=== PATIENT | male | born 1955 | race Caucasian/White ===

== ENCOUNTER 2018-02-28 17:29 | Observation (INO) ==
[2018-02-28 18:13] LABS: Microscopic, Urine URINE MICROSCOPIC (MICROSCOPIC)
[2018-02-28 18:23] LABS: Basophils # 0.1 K/mm3 (0-0.2); Basophils % 0.5 % (0.1-2.0); Eosinophils # 0.4 K/mm3 (0.0-0.4); Eosinophils % 4.4 % (0.1-12.0); Hematocrit 36.8 % (42.0-52.0); Hemoglobin 11.3 g/dL (14.1-18.0); Lymphocytes # 2.2 K/mm3 (0.7-4.5); Lymphocytes % 24.6 K/mm3 (10-50); Mean Corpuscular HGB Conc 30.6 g/dL (31.8-35.4); Mean Corpuscular Volume 78.3 fl (80-94); Mean Platelet Volume 7.5 fl (7.4-10.4); Monocytes # 0.3 K/mm3 (0.1-1.0); Monocytes % 3.6 % (1.7-9.3); Platelet Count 152 K/mm3 (142-424); Red Cell Distribution Width 14.5 % (11.5-17.5)
[2018-02-28 18:36] LABS: Appearance,Urine CLEAR (Clear); Bilirubin,Urine Negative (Negative); Blood, Urine 2+ (Negative); Color,Urine YELLOW (Yellow); Glucose,Urine (UA) 3+ (Negative); Ketones,Urine Negative (Negative); Leukocyte Esterase,Urine Negative (Negative); PH,Urine 5.5 (5.0-8.5); Protein,Urine 3+ (Negative); Specific Gravity, Urine >= 1.030 (1.005-1.030); Urobilinogen,Urine 0.2 EU/dl (0.2)
[2018-02-28 18:39] LABS: Activated Partial Thrombo Time 28.9 seconds (23.6-34.0); INR 1.02 (0.9-1.1); Prothrombin Time 10.5 seconds (9.4-11.8)
[2018-02-28 18:46] LABS: Anion Gap 8.6 mEq/L (5-15); Blood Urea Nitrogen 36 mg/dL (7-18); Calcium 8.6 mg/dL (8.5-10.1); Carbon Dioxide 33 mmol/L (21.0-32.0); Chloride 102 mmol/L (98-107); Glucose 349 mg/dL (74-106); Potassium 4.6 mmoL/L (3.5-5.1); Sodium 139 mmol/L (136-145)
[2018-02-28 18:56] LABS: Bacteria,Urine 1+ /lpf; Squamous Epithelial Cell,Urine Occasional #/hpf (0-5)
--- NOTE | 2018-02-28 20:55 | Emergency Department Note ---
ED Disposition Clinical Impression: Congestive heart failure (CHF), Acute exacerbation of chronic obstructive airways disease, Pulmonary embolism Disposition: Admitted As Inpatient Condition on Discharge: Serious - Critical Care Critical Care Time: Yes (Patient treated for acute CHF acute chest pain) Attestation: On 02/28/18, the high probability of a clinically significant, sudden or life threatening deterioration of the following system(s) required my full and direct attention, intervention and personal management. The time I documented below is in addition to time spent performing reported procedures but includes the f reginakendradanielle listed in this critical care notation. Total Critical Care Time: 60 Vital system(s) involved:: Metabolic Failure, Respiratory Failure My critical care processes included: Assessment & monitoring of V/S, Initial and Re-exams, Data Review/Interpretation, Coordinating Care, Medication Orders and management, Documentation Medical Decision Making - Antonio Inquiry Pt receiving controlled substance: No Antonio was queried for this patient: No Vital Signs: 02/28/18 17:30 02/28/18 17:45 02/28/18 17:50 Temperature 96.5 F L Temperature Source Temporal Artery Scan Pulse Rate Pulse Rate [Apical] 79 72 68 Respiratory Rate 24 24 22 Blood Pressure Blood Pressure [Left Arm] 180/93 171/88 156/87 Blood Pressure Mean [Left Arm] 122 115 110 Blood Pressure Source Blood Pressure Source [Left Arm] Automatic Cuff Automatic Cuff Automatic Cuff Blood Pressure Position Blood Pressure Position [Left Arm] Sitting Sitting Sitting 02 Sat by Pulse Oximetry 94 L 94 L 94 L Oxygen Delivery Method Non-Rebreather BiPAP BiPAP 02/28/18 17:55 02/28/18 18:00 02/28/18 19:11 Temperature 96.8 F L Temperature Source Temporal Artery Scan Pulse Rate Pulse Rate [Apical] 66 65 63 Respiratory Rate 22 22 22 Blood Pressure Blood Pressure [Left Arm] 152/78 151/90 146/65 Blood Pressure Mean [Left Arm] 102 110 92 Blood Pressure Source Blood Pressure Source [Left Arm] Automatic Cuff Automatic Cuff Automatic Cuff Blood Pressure Position Blood Pressure Position [Left Arm] Sitting Sitting Sitting 02 Sat by Pulse Oximetry 94 L 94 L 95 Oxygen Delivery Method BiPAP BiPAP BiPAP 02/28/18 19:27 02/28/18 19:29 Temperature 96.8 F L Temperature Source Temporal Artery Scan Pulse Rate 64 Pulse Rate [Apical] Respiratory Rate 20 Blood Pressure 155/87 Blood Pressure [Left Arm] Blood Pressure Mean [Left Arm] Blood Pressure Source Automatic Cuff Blood Pressure Source [Left Arm] Blood Pressure Position Sitting Blood Pressure Position [Left Arm] 02 Sat by Pulse Oximetry Oxygen Delivery Method BiPAP Non-Rebreather BiPAP - Lab Data Lab results reviewed: Yes: I reviewed the patient's lab results. Lab Results 02/28/18 17:40: WBC 9.0, RBC 4.70, Hgb 11.3 L, Hct 36.8 L, MCV 78.3 L, MCH 24.0 L, MCHC 30.6 L, RDW 14.5, Plt Count 152, MPV 7.5, Neut % (Auto) 67.0, Lymph % (Auto) 24.6, [place] % (Auto) 3.6, Eos % (Auto) 4.4, Baso % (Auto) 0.5, Neut # (Auto) 6.0, Lymph # (Auto) 2.2, [place] # (Auto) 0.3, Eos # (Auto) 0.4, Baso # (Auto) 0.1 02/28/18 17:40: Sodium 139, Potassium 4.6, Chloride 102, Carbon Dioxide 33 H, Anion Gap 8.6, BUN 36 H, Creatinine 1.87 H, Estimated Creat Clear 77, Estimated GFR 37 L, Est GFR ( Amer) 44 L, Glucose 349 H, Calcium 8.6, Troponin I < 0.02 02/28/18 17:40: Urine Color Yellow, Urine Appearance Clear, Urine pH 5.5, Ur Specific [place] >= 1.030, Urine Protein 3+, Urine Glucose (UA) 3+, Urine Ketones Negative, Urine Blood 2+, Urine Nitrate Negative, Urine Bilirubin Negative, Urine Urobilinogen 0.2, Ur Leukocyte Esterase Negative, Urine RBC None, Urine WBC 3-5, Ur Squamous Epith Cells Occasional, Urine Bacteria 1+ 02/28/18 18:21: PT 10.5, INR 1.02, APTT 28.9 02/28/18 19:30: Lactate 1.0 Result diagrams: 02/28/18 17:40 02/28/18 17:40 Orders (Tests/Meds): ED MEDICATIONS Generic Name Dose Route Start Last Admin Trade Name Freq PRN Reason Stop Dose Admin Albuterol/Ipratropium 3 ml 02/28/18 19:28 Duoneb 3ml Neb IH 03/05/18 19:27 Q3H PRN Shortness Of Breath Aspirin 81 mg 03/01/18 09:00 Aspirin 81mg Chewable Tablet PO 03/31/18 08:59 DAILY EUSEBIO Enoxaparin Sodium 140 mg 02/28/18 19:28 Lovenox 150mg/Ml Syringe SQ 03/30/18 19:27 Q12H EUSEBIO Furosemide 60 mg 02/28/18 23:30 Lasix 20mg/2ml Vial IV 02/28/18 23:31 ONCE ONE Vancomycin HCl 2,250 mg/ 250 mls @ 125 mls/hr 02/28/18 19:28 Sodium Chloride IV 02/28/18 20:45 ONCE ONE Ceftriaxone Sodium 2 gm/ 100 mls @ 200 mls/hr 03/01/18 18:45 Sodium Chloride IV 03/14/18 18:44 Q24H EUSEBIO Protocol Insulin Human Lispro 0 unit 02/28/18 21:00 Humalog 100 Units/Ml 3ml Vial (Ssi) SQ 03/30/18 20:59 ACHS [facility] Protocol Morphine Sulfate 4 mg 02/28/18 19:28 Morphine 2mg/Ml Syringe IV 03/30/18 19:27 Q4H PRN Severe Pain Nitroglycerin 0.4 mg 02/28/18 19:28 Nitrostat 0.4mg Sl Tablet SL 03/01/18 19:29 Q5MINP PRN Chest Pain Discontinued Medications Generic Name Dose Route Start Last Admin Trade Name Freq PRN Reason Stop Dose Admin Enoxaparin Sodium 140 mg 02/28/18 18:06 02/28/18 18:19 Lovenox 150mg/Ml Syringe SQ 02/28/18 18:07 140 mg ONCE ONE Administration Furosemide 60 mg 02/28/18 17:54 02/28/18 17:37 Lasix 20mg/2ml Vial IV 02/28/18 17:55 60 mg ONCE ONE Administration Magnesium Sulfate 1 gm/ Sodium 102 mls @ 200 mls/hr 02/28/18 17:30 02/28/18 18:19 Chloride IV 02/28/18 18:00 200 mls/hr ONCE ONE Administration Magnesium Sulfate 1 gm/ Sodium 102 mls @ 200 mls/hr 02/28/18 17:41 02/28/18 17:30 Chloride IV 02/28/18 18:11 200 mls/hr ONCE ONE Administration Ceftriaxone Sodium 2 gm/ 100 mls @ 200 mls/hr 02/28/18 18:45 02/28/18 18:50 Sodium Chloride IV 03/14/18 18:44 200 mls/hr Q24H EUSEBIO Administration Protocol Vancomycin HCl 2,250 mg/ 250 mls @ 125 mls/hr 02/28/18 18:46 Sodium Chloride IV 02/28/18 20:45 ONCE ONE ORDERS Category Date Time Status Chest XR -- portable [XR chest portable] Stat Exams 02/28/18 17:44 Taken XR chest portable Stat Exams 03/01/18 07:00 Ordered Complete Blood Count Auto Diff AMLAB Lab 03/01/18 06:00 Ordered Comprehensive Metabolic Panel AMLAB Lab 03/01/18 06:00 Ordered Troponin I Q3H Lab 02/28/18 22:28 Ordered Troponin I Q3H Lab 03/01/18 01:28 Ordered - Radiology Data #1 Image(s): Chest Image Reviewed: Yes I reviewed the patient's radiology results Preliminary Findings: Abnormal (CHF) Medical Decision Narrative: Patient came in acute CHF possible DC versus EKG showed no significant abnormalities repeat EKG also did not show significant abnormalities no acute DC . Patient was treated with acute BiPAP IV magnesium Lasix reassurance. He was catheterized by me with #16 catheter with clear clear urine. In 15-20 minutes patient was significantly improved able to respond to verbal stimuli. With short answers patient was discussed with Dr. Aponte and admitted to the stepdown in improving condition because of his size risk factors a pulmonary embolus was considered and patient was prophylactically started on Lovenox he was not a candidate for contrast CT Chest Pain HPI - General Chief Complaint: Shortness of Breath/Dyspnea Stated Complaint: SOA Time Seen by Provider: 02/28/18 17:30 Mode of Arrival: EMS Source of Information: Patient, EMS Limitations: No Limitations Description of Symptoms (Recalled from ER Triage Doc. by RN): Per pt report pt has been feeling SOA for a couple of days. EMS reports they picked pt up from his PCP office r/t SOA and weakness. Upon arrival to ED pt was SOA, lethargic, pale and diaphoretic - History of Present Illness HPI narrative: Patient was brought in by EMS after a possible STEMI was considered in route patient had 2 days of history of increasing shortness of breath called the doctor's office and showed up in severe respiratory distress he is a diabetic obese individual recently admitted and discharged from another hospital for possible kidney infection. He showed up at the doctor's office in extreme distress and dyspnea EMS was called and patient transferred to the emergency room with chest pain history in route he was given nitroglycerin and became hypotensive. On arrival he was in extreme respiratory distress tachypneic with wheezes and rales MD complaint: chest pain Duration: intermittent Pain radiation: none Risk Factors for CAD: Hypertension, Diabetes Treatments prior to or on arrival for Cardiac Chest Pain: aspirin, nitroglycerin, oxygen - Related Data Allergies Allergy/AdvReac Type Severity Reaction Status Date / Time No Known Allergies Allergy Unverified 05/25/17 15:39 [facility] History I have reviewed the patient's past medical history: Yes Medical History: Reports:: Diabetes Mellitus Type 2, Hyperlipidemia, Hypertension, Myocardial Infarction (2005) Other Medical History: Reports: Cataracts Other Surgeries: Yes: Cholecystectomy - Social History Educational Level: Attended Grade School Smoking Status: Former smoker Tobacco Type: cigarettes Alcohol Intake: never Occupational Status: disabled Household Members: none - Psychiatric History Expresses thoughts of harming self/others: None Suicide Plan Description: No Plan Family Hx:: Diabetes, Hyperlipidemia, Hypertension ROS Obtained: Yes All systems reviewed & no additional complaints, Yes other (Patient was in acute respiratory distress) - Cardiovascular Cardiovascular: Reports chest pain - Respiratory Respiratory: Yes system reviewed and no additional complaints, except as docu, Yes as per HPI, Yes chest congestion, Yes dyspnea on exertion Physical Exam - General General appearance: alert, anxious, in distress, obese Comment: In severe respiratory distress acute CHF - Head Head exam: atraumatic, normocephalic, normal inspection - Eye Eye exam: Present: normal appearance, PERRL, EOMI - ENT ENT exam: Present: normal exam, normal oropharynx, mucous membranes moist, TM's normal bilaterally, normal external ear exam - Neck Neck exam: Present: normal inspection, full ROM, trachea midline, other (Very short neck). Absent: meningismus, lymphadenopathy - Chest Chest inspection: Present: normal inspection, symmetric chest wall rise, tenderness, other (Marked tenderness over the right parasternal area reproducing patient's pain) - Respiratory Respiratory exam: Present: respiratory distress, wheezes, prolonged expiratory phase, other (Rales). Absent: normal lung sounds bilaterally - Cardiovascular Cardiovascular exam: Present: regular rate, normal rhythm, JVD - Abdominal Exam Abdominal exam: Present: soft, normal bowel sounds. Absent: distention, tenderness, guarding - Extremities Exam Extremities exam: Present: normal inspection, full ROM, normal capillary refill, pedal edema (3+ pitting edema lower extremities). Absent: calf tenderness - Back Exam Back exam: Present: normal inspection. Absent: tenderness - Neurological Exam Neurological exam: Present: alert, oriented X3 - Psychiatric Psychiatric exam: Present: normal affect, normal mood - Skin Skin exam: Present: warm, dry, intact, normal color - Lymphatic Lymphatic Findings: no adenopathy
--- NOTE | 2018-03-01 00:19 | History & Physical Report ---
*Admission Date: 02/28/18 *Chief complaint: Shortness of breath adn chest pressure *History of present illness: 62yo M with Hx of CHF, CAD, HTN, CKD 3, HLD, Arthritis, and morbid obesity who presents with acute onset of chest pressure and shortness of breath. Patient reports having some worsening of SOA over the past day. When he woke from a nap this afteroon ~4pm he noted significant respiratory distress. He called the clinic in [place] at that time and reported hit felt like some one was sitting on his chest. HE was encouraged to call 911 fo ran ambulance, though he insisted on driving to his brothers. En route, his Sx became worse and he stopped at the clinic in acute respiratory distress. and ambulance was called that took him to the [facility] ER. Prior to transfer he received a 325mg ASA, EKG with no overt STR changes, and placed on O2. In the ER his assessment was remarkable for Acute on CHronic respiratory failure, FRANKIE on CKD, Microcytic anemia, and CXR with increased Pulmonary vasculature and cephalization. Treated with Bipap, Mg x 2, and started on Ceftriaxone and vancomycin. Received one dose of Lasix as well. Color noted to be improved in ER compared to clinic where patient was moeller, cool and clammy. Denies N/V/D, EMANUEL, Syncope, C/o dyspnea, orthopnea, chest pressure, referred left arm pain, increased LE edema, fatigue. [facility] History I have reviewed the patient's past medical history: Yes Medical History: Reports:: Diabetes Mellitus Type 2, Hyperlipidemia, Hypertension, Myocardial Infarction (2005) Other Medical History: Reports: Cataracts Other Surgeries: Yes: Cholecystectomy - *Social History Educational Level: Attended Grade School Smoking Status: Former smoker Tobacco Type: cigarettes Alcohol Intake: never Occupational Status: disabled Household Members: none - Psychiatric History Expresses thoughts of harming self/others: None Suicide Plan Description: No Plan *Family Hx:: Diabetes, Hyperlipidemia, Hypertension Review of Systems - Review of Systems Review of systems:: pertinent systems reviewed and negative unless documented below Meds Home Medications Medication Instructions Recorded Confirmed Type Amlodipine Besylate [Amlodipine 10 mg PO DAILY 02/28/18 02/28/18 History 10mg Tab] Aspirin [Aspirin 325mg Tab] 325 mg PO DAILY 02/28/18 02/28/18 History Celecoxib 200 mg PO DAILY 02/28/18 02/28/18 History Clopidogrel Bisulfate [Plavix 75mg 75 mg PO DAILY 02/28/18 02/28/18 History Tab] Febuxostat [Uloric 40mg Tab] 40 mg PO DAILY 02/28/18 02/28/18 History Fluticasone Propionate [Flovent 1 puff INHALATION DAILY 02/28/18 02/28/18 History Hfa 110mcg Inhaler] Insulin Detemir [Levemir 80 units SQ BID 02/28/18 02/28/18 History 100units/mL 3mL flexpen] Losartan/Hydrochlorothiazide 1 each PO DAILY 02/28/18 02/28/18 History [Losartan-Hctz 100-25 mg Tab] Oxycodone HCl [Oxycodone (IR) 10mg 10 mg PO QID 02/28/18 02/28/18 History Tab] Pregabalin [Lyrica 150mg Cap] 150 mg PO BID 02/28/18 02/28/18 History Sucralfate [Sucralfate 1gm 1 gram PO BID 02/28/18 02/28/18 History Tab] raNITIdine HCl [Ranitidine HCl] 150 mg PO BID 02/28/18 02/28/18 History Metoprolol Succinate 100 mg PO DAILY 03/01/18 03/01/18 History Rosuvastatin Calcium 40 mg PO HS 03/01/18 03/01/18 History Ustekinumab [Stelara] 1 inj SQ DIRECTED 03/01/18 03/01/18 History Allergies Allergy/AdvReac Type Severity Reaction Status Date / Time No Known Allergies Allergy Verified 03/01/18 07:00 Exam Vital signs and Labs for Last 24 Hours: Temp Pulse Resp BP Pulse Ox 97.6 F 67 20 156/88 99 02/28/18 19:40 02/28/18 22:00 02/28/18 19:40 02/28/18 22:00 02/28/18 22:00 Laboratory Results - last 24 hr 02/28/18 17:40: WBC 9.0, RBC 4.70, Hgb 11.3 L, Hct 36.8 L, MCV 78.3 L, MCH 24.0 L, MCHC 30.6 L, RDW 14.5, Plt Count 152, MPV 7.5, Neut % (Auto) 67.0, Lymph % (Auto) 24.6, [place] % (Auto) 3.6, Eos % (Auto) 4.4, Baso % (Auto) 0.5, Neut # (Auto) 6.0, Lymph # (Auto) 2.2, [place] # (Auto) 0.3, Eos # (Auto) 0.4, Baso # (Auto) 0.1 02/28/18 17:40: Sodium 139, Potassium 4.6, Chloride 102, Carbon Dioxide 33 H, Anion Gap 8.6, BUN 36 H, Creatinine 1.87 H, Estimated Creat Clear 77, Estimated GFR 37 L, Est GFR ( Amer) 44 L, Glucose 349 H, Calcium 8.6, Troponin I < 0.02 02/28/18 17:40: Urine Color Yellow, Urine Appearance Clear, Urine pH 5.5, Ur Specific [place] >= 1.030, Urine Protein 3+, Urine Glucose (UA) 3+, Urine Ketones Negative, Urine Blood 2+, Urine Nitrate Negative, Urine Bilirubin Negative, Urine Urobilinogen 0.2, Ur Leukocyte Esterase Negative, Urine RBC None, Urine WBC 3-5, Ur Squamous Epith Cells Occasional, Urine Bacteria 1+ 02/28/18 18:21: PT 10.5, INR 1.02, APTT 28.9 02/28/18 19:30: Lactate 1.0 02/28/18 19:57: Troponin I < 0.02 02/28/18 19:57: Magnesium 2.0 02/28/18 20:52: POC Glucose 372 H* 02/28/18 22:40: Troponin I < 0.02 I & O for Last 24 hours: Intake & Output 02/26/18 02/27/18 02/28/18 03/01/18 23:59 23:59 23:59 23:59 Output Total 700 / 700 Balance -700 / -700 Weight 134.309 kg - Constitutional moderate distress, morbidly obese, cooperative - *Routine HEENT Exam Head: Present: normocephalic, atraumatic, cushingoid faces Eye: Present: EOMI, PERRL ENT: Present: mucous membranes moist - *Routine Neck Exam Present: full ROM, JVD, thyromegaly. Absent: lymphadenopathy - *Routine Respiratory Exam Present: accessory muscle use, decreased breath sounds, respiratory distress, wheezes, crackles (bases), diminished air movement - *Routine Cardiovascular Exam Present: JVD Comments: distant, normal S1/S2 - *Routine Abdominal Exam Present: soft, normoactive bowel sounds - *Routine Rectal Exam Patient deferred: visual exam - *Routine Exam Patient deferred: penile exam - *Routine Extremities Exam Present: clubbing, edema (3+ BLE). Absent: cyanosis - *Routine Skin Exam Present: intact. Absent: cyanosis, erythema - *Routine Neurological Exam Present: alert, oriented X3, CN II-XII intact - Routine Psychiatric Exam Present: cooperative, anxious Assessment and Plan (1) [id number] kidney injury Current visit: Yes Status: Acute Qualifiers: Acute renal failure type: unspecified Chronic kidney disease stage: stage 3 (moderate) Qualified Code(s): N17.9 - Acute kidney failure, unspecified; N18.3 - Chronic kidney disease, stage 3 (moderate) Category: Medical Code(s): N17.9 - Acute kidney failure, unspecified; N18.9 - Chronic kidney disease, unspecified Given CHF exacerbation and volumen overload, suspect cardiorenal pathology - Avoid nephrotoxins - BL Cr ~1.5-1.6 - AM labs to assess response. (2) Microcytic anemia Current visit: Yes Status: Chronic Category: Medical Code(s): D50.9 - Iron deficiency anemia, unspecified Suspect due to chronic disease - Initiate Iron supplementation in outpatient setting (3) Acute exacerbation of chronic obstructive airways disease Current visit: Yes Status: Acute Category: Medical Code(s): J44.1 - Chronic obstructive pulmonary disease with (acute) exacerbation COPD in setting of CHF exacerbation - Duonebs - Bipap overnight - assess response to diuresis - Goal sats >92 while awake and > 88% while asleep - CXR with pulmonary edema - cannot rule out PE at this time, though less likely - Abx due to recent Hospitalization and for coverage of HCAP, de-excalate Vanc, initate Azith (4) Congestive heart failure (CHF) Current visit: Yes Status: Acute Qualifiers: Heart failure type: combined systolic and diastolic Heart failure chronicity: acute on chronic Qualified Code(s): I50.43 - Acute on chronic combined systolic (congestive) and diastolic (congestive) heart failure Category: Medical Code(s): I50.9 - Heart failure, unspecified BNP elevated, CXR with cephalization and increase pulm congestion - Diuresis as ordered, improved Sx. - strict I&O, neg 2L since admission - cardiology consult, appreciate recs, likely go for heart cath today. (5) Uncontrolled diabetes mellitus Current visit: Yes Status: Chronic Qualifiers: Diabetes mellitus type: type 2 Glycemic state: with hyperglycemia Qualified Code(s): E11.65 - Type 2 diabetes mellitus with hyperglycemia Category: Medical Code(s): E11.65 - Type 2 diabetes mellitus with hyperglycemia initiated Lantus 60U daily - SSI with finger sticks AC&HS
[2018-03-01 06:02] LABS: Basophils % 0.4 % (0.1-2.0); Eosinophils # 0.1 K/mm3 (0.0-0.4); Eosinophils % 2.2 % (0.1-12.0); Hemoglobin 10.3 g/dL (14.1-18.0); Lymphocytes # 1.2 K/mm3 (0.7-4.5); Lymphocytes % 20.2 K/mm3 (10-50); Mean Corpuscular HGB Conc 31.3 g/dL (31.8-35.4); Mean Corpuscular Hemoglobin 23.7 pg (27.0-31.2); Mean Corpuscular Volume 75.7 fl (80-94); Mean Platelet Volume 6.6 fl (7.4-10.4); Monocytes # 0.2 K/mm3 (0.1-1.0); Monocytes % 3.2 % (1.7-9.3); Neutrophils # 4.6 K/mm3 (1.8-7.8); Platelet Count 129 K/mm3 (142-424); Red Blood Count 4.36 M/mm3 (4.60-6.20); Red Cell Distribution Width 14.7 % (11.5-17.5); White Blood Count 6.2 K/mm3 (4.8-10.8)
[2018-03-01 06:19] LABS: Albumin Level 2.9 gm/dL (3.4-5.0); Albumin/Globulin Ratio 0.8 (1.1-1.8); Anion Gap 10.1 mEq/L (5-15); Bilirubin,Total 0.3 mg/dL (0.2-1.0); Calcium 8.5 mg/dL (8.5-10.1); Globulin 3.8 gm/dl (1.3-3.2); Potassium 4.1 mmoL/L (3.5-5.1); Total Protein,Serum 6.7 gm/dL (6.4-8.2)
--- NOTE | 2018-03-01 08:39 | Pharmacy Consult Notes ---
[facility] Pharmacy VTE Monitoring - Patient Demographics Admission date: 02/28/18 Report Date: 03/01/18 Time: 08:39 Allergies/Adverse Reactions: Patient Allergies No Known Allergies Allergy (Verified 03/01/18 07:00) Height: 1.8 m Weight: 129.756 kg Patient Problems: Current Active Problems Congestive heart failure (CHF) (Acute) Acute exacerbation of chronic obstructive airways disease (Acute) Pulmonary embolism (Acute) [id number] kidney injury (Acute) Microcytic anemia (Chronic) Uncontrolled diabetes mellitus (Chronic) - VTE Risk Labs: VTE Related Lab Results Hgb 10.3 g/dL (14.1-18.0) L 03/01/18 05:35 Hct 33.0 % (42.0-52.0) L 03/01/18 05:35 Plt Count 129 K/mm3 (142-424) L 03/01/18 05:35 PT 10.5 seconds (9.4-11.8) 02/28/18 18:21 INR 1.02 (0.9-1.1) 02/28/18 18:21 APTT 28.9 seconds (23.6-34.0) 02/28/18 18:21 BUN 36 mg/dL (7-18) H 03/01/18 05:35 Creatinine 1.85 mg/dL (0.70-1.30) H 03/01/18 05:35 Estimated Creat Clear 76 mL/min (0-300) 03/01/18 05:35 Was VTE Risk Assessment Performed: Yes VTE Score: 7 VTE Risk Level: Moderate Risk - Prophylaxis VTE Prophylaxis Ordered?: Yes Types of VTE Prophylaxis: Pharmacological Pharmacologic Type: Enoxaparin - VTE Diagnosis Confirmed Treatment or plan recommended: Continue Current Treatment
--- NOTE | 2018-03-01 08:46 | Consult Report ---
History of Present Illness Consult date: 03/01/18 Requesting physician: Guillaume Aponte Consult reason: chest pain Chief complaint: Chest pain, SOA Additional Medical History:: 1. CAD A. History of coronary stenting, approximately 2009 and 2014, [facility] 2. COPD, obesity hypoventilation syndrome A. Previously evaluated by Dr. Lomeli in the past 3. HTN 4. HLD 5. Carotid artery stenosis, "50%" per patient as recently as 8 months ago A. No prior history of stroke 6. Presumed peripheral vascular disease with erectile dysfunction 7. Diabetes mellitus, type II, treated for about 6 years per patient 8. Chronic kidney disease, stage III, creatinine 1.8 and GFR 37, 02/28/18 9. Psoriatic arthritis and gout History of present illness: 62-year-old white male with no medical problems as noted above presented to Dr. Aponte's office for chest discomfort and shortness of breath that had been intermittently getting worse over the previous several days. Patient described substernal chest pressure and pain with associated shortness of breath and upper abdominal discomfort. This is associated with increasing swelling in his lower extremities. Patient was initially thought to have an acute exacerbation of COPD, however ER evaluation revealed evidence of congestive heart failure. Out of hospital EKG reportedly showed no evidence of ST segment elevation and the ER workup revealed normal troponins. Patient was started on IV diuretics with significant diuresis and improvement in symptoms. He does relate recent hospitalization at [facility] with similar symptoms. He reportedly was to undergo a cardiac catheterization however he was discharged home before that was performed. He states his symptoms are similar to those he has had in the past prior to coronary stenting. Cardiology is consulted for evaluation and recommendations. [facility] History Medical History: Reports:: Diabetes Mellitus Type 2, Hyperlipidemia, Hypertension, Myocardial Infarction (2005) Other Medical History: Reports: Cataracts Other Surgeries: Yes: Cholecystectomy - *Social History Educational Level: Attended Grade School Smoking Status: Former smoker Tobacco Type: cigarettes Alcohol Intake: never Occupational Status: disabled Household Members: none - Psychiatric History Expresses thoughts of harming self/others: None Suicide Plan Description: No Plan *Family Hx:: Diabetes, Hyperlipidemia, Hypertension Meds Home Medications Medication Instructions Recorded Confirmed Type Amlodipine Besylate [Amlodipine 10 mg PO DAILY 02/28/18 02/28/18 History 10mg Tab] Aspirin [Aspirin 325mg Tab] 325 mg PO DAILY 02/28/18 02/28/18 History Celecoxib 200 mg PO DAILY 02/28/18 02/28/18 History Clopidogrel Bisulfate [Plavix 75mg 75 mg PO DAILY 02/28/18 02/28/18 History Tab] Febuxostat [Uloric 40mg Tab] 40 mg PO DAILY 02/28/18 02/28/18 History Fluticasone Propionate [Flovent 1 puff INHALATION DAILY 02/28/18 02/28/18 History Hfa 110mcg Inhaler] Insulin Detemir [Levemir 80 units SQ BID 02/28/18 02/28/18 History 100units/mL 3mL flexpen] Losartan/Hydrochlorothiazide 1 each PO DAILY 02/28/18 02/28/18 History [Losartan-Hctz 100-25 mg Tab] Oxycodone HCl [Oxycodone (IR) 10mg 10 mg PO QID 02/28/18 02/28/18 History Tab] Pregabalin [Lyrica 150mg Cap] 150 mg PO BID 02/28/18 02/28/18 History Sucralfate [Sucralfate 1gm 1 gram PO BID 02/28/18 02/28/18 History Tab] raNITIdine HCl [Ranitidine HCl] 150 mg PO BID 02/28/18 02/28/18 History Metoprolol Succinate 100 mg PO DAILY 03/01/18 03/01/18 History Rosuvastatin Calcium 40 mg PO HS 03/01/18 03/01/18 History Ustekinumab [Stelara] 1 inj SQ DIRECTED 03/01/18 03/01/18 History Allergies Allergy/AdvReac Type Severity Reaction Status Date / Time No Known Allergies Allergy Verified 03/01/18 07:00 Review of Systems - *Cardiovascular Reports chest pain, Reports shortness of breath, Reports shortness of breath with activity, Reports leg swelling - *Respiratory Reports cough, Reports shortness of breath, Reports shortness of breath with activity - *Gastrointestinal Reports abdominal pain - *Genitourinary Reports erectile dysfunction - *Musculoskeletal Reports back pain - *Neurologic Denies seizure-like activity, Denies lack of coordination Exam Vital signs and Labs for Last 24 Hours: Temp Pulse Resp BP Pulse Ox 97.6 F 70 16 160/79 94 L 03/01/18 08:00 03/01/18 08:00 03/01/18 08:00 03/01/18 08:00 03/01/18 08:00 Laboratory Results - last 24 hr 02/28/18 17:40: WBC 9.0, RBC 4.70, Hgb 11.3 L, Hct 36.8 L, MCV 78.3 L, MCH 24.0 L, MCHC 30.6 L, RDW 14.5, Plt Count 152, MPV 7.5, Neut % (Auto) 67.0, Lymph % (Auto) 24.6, [place] % (Auto) 3.6, Eos % (Auto) 4.4, Baso % (Auto) 0.5, Neut # (Auto) 6.0, Lymph # (Auto) 2.2, [place] # (Auto) 0.3, Eos # (Auto) 0.4, Baso # (Auto) 0.1 02/28/18 17:40: Sodium 139, Potassium 4.6, Chloride 102, Carbon Dioxide 33 H, Anion Gap 8.6, BUN 36 H, Creatinine 1.87 H, Estimated Creat Clear 77, Estimated GFR 37 L, Est GFR ( Amer) 44 L, Glucose 349 H, Calcium 8.6, Troponin I < 0.02 02/28/18 17:40: Urine Color Yellow, Urine Appearance Clear, Urine pH 5.5, Ur Specific [place] >= 1.030, Urine Protein 3+, Urine Glucose (UA) 3+, Urine Ketones Negative, Urine Blood 2+, Urine Nitrate Negative, Urine Bilirubin Negative, Urine Urobilinogen 0.2, Ur Leukocyte Esterase Negative, Urine RBC None, Urine WBC 3-5, Ur Squamous Epith Cells Occasional, Urine Bacteria 1+ 02/28/18 18:21: PT 10.5, INR 1.02, APTT 28.9 02/28/18 19:30: Lactate 1.0 02/28/18 19:57: Troponin I < 0.02 02/28/18 19:57: Magnesium 2.0 02/28/18 20:52: POC Glucose 372 H* 02/28/18 22:40: Troponin I < 0.02 03/01/18 01:44: Troponin I < 0.02 03/01/18 05:22: POC Glucose 214 H 03/01/18 05:35: WBC 6.2 D, RBC 4.36 L, Hgb 10.3 L, Hct 33.0 L, MCV 75.7 L, MCH 23.7 L, MCHC 31.3 L, RDW 14.7, Plt Count 129 L, MPV 6.6 L, Neut % (Auto) 74.0, Lymph % (Auto) 20.2, [place] % (Auto) 3.2, Eos % (Auto) 2.2, Baso % (Auto) 0.4, Neut # (Auto) 4.6, Lymph # (Auto) 1.2, [place] # (Auto) 0.2, Eos # (Auto) 0.1, Baso # (Auto) 0.0 03/01/18 05:35: Sodium 141, Potassium 4.1, Chloride 100, Carbon Dioxide 35 H, Anion Gap 10.1, BUN 36 H, Creatinine 1.85 H, Estimated Creat Clear 76, Estimated GFR 37 L, Est GFR ( Amer) 45 L, Glucose 204 H D, Calcium 8.5, Total Bilirubin 0.3, AST 10 L, ALT 20, Alkaline Phosphatase 88, Total Protein 6.7, Albumin 2.9 L, Globulin 3.8 H, Albumin/Globulin Ratio 0.8 L 03/01/18 05:35: B-Natriuretic Peptide 233 H I & O for Last 24 hours: Intake & Output 02/26/18 02/27/18 02/28/18 03/01/18 11:59 11:59 11:59 11:59 Intake Total 700 / 700 Output Total 3340 / 3340 Balance -2640 / -2640 Weight 286 lb 1 oz Microbiology Reports for the Last 24 Hours: Microbiology 03/01/18 01:49 Sputum - Expectorated Sputum Gram Stain - Final 03/01/18 01:49 Sputum - Expectorated Sputum Sputum Culture - Preliminary - *Routine Neck Exam Present: supple. Absent: JVD, carotid bruit - *Routine Respiratory Exam Present: decreased breath sounds, CTA bilaterally. Absent: accessory muscle use, rales, rhonchi, wheezes - *Routine Cardiovascular Exam Present: RRR, murmur. Absent: gallop, rubs Comments: Soft grade 2 out of 6 systolic ejection murmur heard at the apex. - *Routine Abdominal Exam Present: soft. Absent: tenderness, distended, guarding - *Routine Extremities Exam Present: edema. Absent: calf tenderness - *Routine Skin Exam Present: warm. Absent: cyanosis Comments: Patient does have some healing blisters on his left lower extremity from recent hot plastic bag contact. - *Routine Neurological Exam Present: alert, oriented X3, moving all extremities Assessment and Plan (1) H/O class IV angina pectoris Current visit: Yes Status: Acute Category: Medical Code(s): Z86.79 - Personal history of other diseases of the circulatory system (2) Coronary artery disease Current visit: Yes Status: Acute Category: Medical Code(s): I25.10 - Atherosclerotic heart disease of [place] coronary artery without angina pectoris (3) Itxzz-ho-tyqotpz kidney injury Current visit: Yes Status: Acute Qualifiers: Acute renal failure type: unspecified Chronic kidney disease stage: stage 3 (moderate) Qualified Code(s): N17.9 - Acute kidney failure, unspecified; N18.3 - Chronic kidney disease, stage 3 (moderate) Category: Medical Code(s): N17.9 - Acute kidney failure, unspecified; N18.9 - Chronic kidney disease, unspecified (4) Microcytic anemia Current visit: Yes Status: Chronic Category: Medical Code(s): D50.9 - Iron deficiency anemia, unspecified (5) Acute exacerbation of chronic obstructive airways disease Current visit: Yes Status: Acute Category: Medical Code(s): J44.1 - Chronic obstructive pulmonary disease with (acute) exacerbation (6) Congestive heart failure (CHF) Current visit: Yes Status: Acute Qualifiers: Heart failure type: combined systolic and diastolic Heart failure chronicity: acute on chronic Qualified Code(s): I50.43 - Acute on chronic combined systolic (congestive) and diastolic (congestive) heart failure Category: Medical Code(s): I50.9 - Heart failure, unspecified (7) Uncontrolled diabetes mellitus Current visit: Yes Status: Chronic Qualifiers: Diabetes mellitus type: type 2 Glycemic state: with hyperglycemia Qualified Code(s): E11.65 - Type 2 diabetes mellitus with hyperglycemia Category: Medical Code(s): E11.65 - Type 2 diabetes mellitus with hyperglycemia (8) History of coronary artery stent placement Current visit: Yes Status: Acute Category: Surgical Code(s): Z95.5 - Presence of coronary angioplasty implant and graft - Assessment and plan all Dx Assessment and Plan for all problems:: 1. With patient's history of chest pain shortness of breath waking him from sleep recently, consistent with class IV angina pectoris, and his multiple cardiac risk factors would recommend left heart catheterization for further evaluation. With his history of COPD and obesity hypoventilation would consider right heart catheterization as well. 2. Will obtain an echocardiogram for left ventricular size and function evaluation along with valvular heart disease in the setting of cardiac murmur on exam. 3. Continue aspirin and Plavix therapy. 4. Pending results of above testing, consider switching metoprolol to carvedilol in this diabetic patient if needed. 5. Further recommendations to follow.
--- NOTE | 2018-03-01 20:12 | Cardiology Report ---
PROCEDURE: 2-D M-mode and color Doppler study INDICATIONS FOR THE TEST: Chest pain + COPD+ Heart Murmur Tobacco Smoking Palpitations Fatigue+ Syncope Edema+ Hypertension+Diabetes Mellitus+ Rheumatic Fever SOB+SALAS+Obesity+Hyperlipidemia+ Family History HD Additional History RI 06, CAD, CKD PATIENT INFORMATION HEIGHT: 71 WEIGHT:286 GENDER: Male B/P:156/88 2-D/M-MODE INTERPRETATION: 2-D MEASUREMENTS OBSERVED VALUES IN CMS Right Ventricular Dimension (RVDd) 2.7 Interventricular Septum (Thickness)(IVsd) 1.4 Left Ventricular Internal Dimensions(LVIDd) 5.4 Left Ventricular Posterior Wall (Thickness)(LVPWd) 1.2 Aortic Root 3.7 Aortic Cusp Separation 1.7 Left Atrial Dimensions (LAD) 4.8 2D 1. Technically difficult study because of the patient's factor and poor acoustic windows 2. Left atrium is mildly enlarged, left ventricle is normal size, mild concentric left ventricular hypertrophy, visually estimated ejection fraction of 50% with no regional wall motion abnormality, endocardial surface of poorly visualized 3. The right atrium and right ventricle are mildly enlarged with normal contractility. 4. The aortic valve is thickened and calcified leaflet continue to display mobility. 5. The mitral and tricuspid valve leaflets are minimally thickened. 6. No significant pericardial effusion noted. DOPPLER INTERROGATION: Doppler interrogation of the aortic, mitral and tricuspid valvular presence of mild mitral and tricuspid regurgitation, tricuspid regurgitation jet velocity is insufficient for calculation of the right ventricular systolic pressure, grade 1 diastolic dysfunction seen with tissue Doppler evidence of raised left atrial pressure. CONCLUSION: 1. Mild biatrial enlargement, normal left ventricular size, mild concentric left ventricular hypertrophy, visually estimated ejection fraction 50% with no regional wall motion abnormality, endocardial surface of poorly visualized. Grade 1 diastolic dysfunction seen with tissue Doppler evidence of raised left atrial pressure. 2. Mildly enlarged right ventricle with normal contractility 3. Mild mitral and tricuspid regurgitation 4. No significant pericardial effusion noted.
[2018-03-02 05:57] LABS: Basophils % 0.6 % (0.1-2.0); Eosinophils # 0.3 K/mm3 (0.0-0.4); Eosinophils % 3.8 % (0.1-12.0); Hematocrit 36.6 % (42.0-52.0); Lymphocytes # 1.7 K/mm3 (0.7-4.5); Lymphocytes % 24.2 K/mm3 (10-50); Mean Corpuscular HGB Conc 31.4 g/dL (31.8-35.4); Mean Corpuscular Hemoglobin 24.1 pg (27.0-31.2); Mean Corpuscular Volume 76.9 fl (80-94); Mean Platelet Volume 7.2 fl (7.4-10.4); Monocytes # 0.2 K/mm3 (0.1-1.0); Monocytes % 3.5 % (1.7-9.3); Neutrophils # 4.6 K/mm3 (1.8-7.8); Neutrophils % 67.9 % (37.0-80.0); Platelet Count 146 K/mm3 (142-424); Red Blood Count 4.76 M/mm3 (4.60-6.20); Red Cell Distribution Width 14.7 % (11.5-17.5); White Blood Count 6.8 K/mm3 (4.8-10.8)
[2018-03-02 06:02] LABS: Hemoglobin 11.6 g/dL (14.1-18.0)
[2018-03-02 06:07] LABS: Anion Gap 7.3 mEq/L (5-15); Calcium 8.6 mg/dL (8.5-10.1); Potassium 4.3 mmoL/L (3.5-5.1)
--- NOTE | 2018-03-02 08:45 | Progress Note ---
Internal Medicine - PN: Subj *Date: 03/02/18 *Time: 08:43 Interval history: Overall patient is better, slept overnight on nasal cannula oxygen. Exam Vital signs and Labs for Last 24 Hours: Temp Pulse Resp BP Pulse Ox 98.7 F 63 17 150/83 95 03/01/18 20:00 03/02/18 06:00 03/01/18 20:00 03/02/18 06:00 03/02/18 06:00 Laboratory Results - last 24 hr 03/01/18 11:54: POC Glucose 195 H 03/01/18 16:30: POC Glucose 220 H 03/01/18 19:49: POC Glucose 308 H* 03/02/18 05:30: WBC 6.8, RBC 4.76, Hgb 11.6 L D, Hct 36.6 L, MCV 76.9 L, MCH 24.1 L, MCHC 31.4 L, RDW 14.7, Plt Count 146, MPV 7.2 L, Neut % (Auto) 67.9, Lymph % (Auto) 24.2, [place] % (Auto) 3.5, Eos % (Auto) 3.8, Baso % (Auto) 0.6, Neut # (Auto) 4.6, Lymph # (Auto) 1.7, [place] # (Auto) 0.2, Eos # (Auto) 0.3, Baso # (Auto) 0.0 03/02/18 05:30: Sodium 142, Potassium 4.3, Chloride 101, Carbon Dioxide 38 H, Anion Gap 7.3, BUN 34 H, Creatinine 2.08 H, Estimated Creat Clear 68, Estimated GFR 33 L, Est GFR ( Amer) 39 L, Glucose 151 H D, Calcium 8.6, Magnesium 1.9 I & O for Last 24 hours: Intake & Output 02/27/18 02/28/18 03/01/18 03/02/18 11:59 11:59 11:59 11:59 Intake Total 700 / 700 1357 / 1357 Output Total 3340 / 3340 3600 / 3600 Balance -2640 / -2640 -2243 / -2243 Weight 286 lb 1 oz 290 lb 4 oz Microbiology Reports for the Last 24 Hours: Microbiology 03/01/18 01:49 Sputum - Expectorated Sputum Gram Stain - Final 03/01/18 01:49 Sputum - Expectorated Sputum Sputum Culture - Preliminary Narrative: Patient is alert. Has no dyspnea at rest. Comfortable on 2 L of cannula. Pharynx clear, lungs have initial air movement secondary to his size but clear air honeycutt. Heart rate regular. No edema noted Assessment and Plan (1) H/O class IV angina pectoris Current visit: Yes Status: Acute Category: Medical Code(s): Z86.79 - Personal history of other diseases of the circulatory system (2) Coronary artery disease Current visit: Yes Status: Acute Category: Medical Code(s): I25.10 - Atherosclerotic heart disease of [place] coronary artery without angina pectoris (3) Khfhf-sx-iqhjnkl kidney injury Current visit: Yes Status: Acute Qualifiers: Acute renal failure type: unspecified Chronic kidney disease stage: stage 3 (moderate) Qualified Code(s): N17.9 - Acute kidney failure, unspecified; N18.3 - Chronic kidney disease, stage 3 (moderate) Category: Medical Code(s): N17.9 - Acute kidney failure, unspecified; N18.9 - Chronic kidney disease, unspecified (4) Microcytic anemia Current visit: Yes Status: Chronic Category: Medical Code(s): D50.9 - Iron deficiency anemia, unspecified (5) Acute exacerbation of chronic obstructive airways disease Current visit: Yes Status: Acute Category: Medical Code(s): J44.1 - Chronic obstructive pulmonary disease with (acute) exacerbation (6) Congestive heart failure (CHF) Current visit: Yes Status: Acute Qualifiers: Heart failure type: combined systolic and diastolic Heart failure chronicity: acute on chronic Qualified Code(s): I50.43 - Acute on chronic combined systolic (congestive) and diastolic (congestive) heart failure Category: Medical Code(s): I50.9 - Heart failure, unspecified (7) Uncontrolled diabetes mellitus Current visit: Yes Status: Chronic Qualifiers: Diabetes mellitus type: type 2 Glycemic state: with hyperglycemia Qualified Code(s): E11.65 - Type 2 diabetes mellitus with hyperglycemia Category: Medical Code(s): E11.65 - Type 2 diabetes mellitus with hyperglycemia (8) History of coronary artery stent placement Current visit: Yes Status: Acute Category: Surgical Code(s): Z95.5 - Presence of coronary angioplasty implant and graft (9) Morbid obesity Current visit: Yes Status: Acute Category: Medical Code(s): E66.01 - Morbid (severe) obesity due to excess calories - Assessment and plan all Dx Assessment and Plan for all problems:: Oxygenation status improving. Reviewed and appreciate cardiology recommendations. Patient would benefit from TREVOR inhibitor from a cardiology perspective but his kidney function is tenuous. Although TREVOR inhibitors might improve this we will be very cautious. We will start 10 mg twice daily, check BMP tomorrow. Co ntinue current oxygen support per
--- NOTE | 2018-03-02 12:53 | Progress Note ---
Subjective Date: 03/02/18 Time: 12:48 Principal diagnosis: CHF Interval history: 62-year-old white male in bed in no acute distress. States he is breathing much better since diuresis. Denies any chest pain. Cardiac cath from yesterday reveals [id number] coronary disease with elevated left ventricular end- diastolic pressure reduced ejection fraction. Echocardiogram shows left ventricular ejection fraction of about 50% and early hypertensive heart disease changes. Exam Vital signs and Labs for Last 24 Hours: Temp Pulse Resp BP Pulse Ox 98.7 F 70 17 150/83 95 03/01/18 20:00 03/02/18 08:00 03/01/18 20:00 03/02/18 06:00 03/02/18 06:00 Laboratory Results - last 24 hr 03/01/18 16:30: POC Glucose 220 H 03/01/18 19:49: POC Glucose 308 H* 03/02/18 05:30: WBC 6.8, RBC 4.76, Hgb 11.6 L D, Hct 36.6 L, MCV 76.9 L, MCH 24.1 L, MCHC 31.4 L, RDW 14.7, Plt Count 146, MPV 7.2 L, Neut % (Auto) 67.9, Lymph % (Auto) 24.2, [place] % (Auto) 3.5, Eos % (Auto) 3.8, Baso % (Auto) 0.6, Neut # (Auto) 4.6, Lymph # (Auto) 1.7, [place] # (Auto) 0.2, Eos # (Auto) 0.3, Baso # (Auto) 0.0 03/02/18 05:30: Sodium 142, Potassium 4.3, Chloride 101, Carbon Dioxide 38 H, Anion Gap 7.3, BUN 34 H, Creatinine 2.08 H, Estimated Creat Clear 68, Estimated GFR 33 L, Est GFR ( Amer) 39 L, Glucose 151 H D, Calcium 8.6, Magnesium 1.9 03/02/18 12:11: POC Glucose 231 H I & O for Last 24 hours: Intake & Output 02/28/18 03/01/18 03/02/18 03/03/18 11:59 11:59 11:59 11:59 Intake Total 700 / 700 1357 / 1357 Output Total 3340 / 3340 3600 / 3600 Balance -2640 / -2640 -2243 / -2243 Weight 286 lb 1 oz 290 lb 4 oz Microbiology Reports for the Last 24 Hours: Microbiology 03/01/18 01:49 Sputum - Expectorated Sputum Gram Stain - Final 03/01/18 01:49 Sputum - Expectorated Sputum Sputum Culture - Preliminary - *Routine Respiratory Exam Present: CTA bilaterally. Absent: accessory muscle use, rales, rhonchi, wheezes - *Routine Cardiovascular Exam Present: RRR. Absent: murmur, gallop, rubs - *Routine Extremities Exam Present: edema. Absent: calf tenderness Progress Note: A&P (1) Congestive heart failure (CHF) Status: Acute Current Visit: Yes (2) Coronary artery disease Status: Acute Current Visit: Yes (3) Ohpfa-qb-rcgvsfg kidney injury Status: Acute Current Visit: Yes (4) Microcytic anemia Status: Chronic Current Visit: Yes (5) Acute exacerbation of chronic obstructive airways disease Status: Acute Current Visit: Yes (6) Uncontrolled diabetes mellitus Status: Chronic Current Visit: Yes (7) History of coronary artery stent placement Status: Acute Current Visit: Yes (8) Morbid obesity Status: Acute Current Visit: Yes Assessment and Plan for All Diagnoses:: 1. Institution of TREVOR inhibitor has already been started by Dr. Woods with which he will monitor renal status closely. 2. Recommend Lasix 40 mg daily to start tomorrow after AM labs obtained, if renal status stagle. 3. Continue aspirin and Plavix for history of coronary artery stenting. 4. Due to coronary artery disease, diabetes and dyslipidemia recommend starting low-dose statin therapy as an increasing as tolerated.
[2018-03-03 05:33] LABS: Anion Gap 4.3 mEq/L (5-15); Calcium 8.5 mg/dL (8.5-10.1); Potassium 4.3 mmoL/L (3.5-5.1)
--- NOTE | 2018-03-03 08:16 | Progress Note ---
Subjective Date: 03/03/18 Time: 08:13 Principal diagnosis: CHF Interval history: 62-year-old white male inside in no distress. Main complaints of pain in the joints from his psoriatic arthritis. He relates he previously has been taking Celebrex 200 mg daily but would like to consider Embrel due to its treatment of disease progression. Exam Vital signs and Labs for Last 24 Hours: Temp Pulse Resp BP Pulse Ox 98.3 F 66 20 157/87 95 03/03/18 04:00 03/03/18 04:00 03/03/18 04:00 03/03/18 04:00 03/03/18 04:00 Laboratory Results - last 24 hr 03/02/18 12:11: POC Glucose 231 H 03/02/18 16:41: POC Glucose 232 H 03/02/18 20:15: POC Glucose 232 H 03/03/18 04:46: Sodium 138, Potassium 4.3, Chloride 100, Carbon Dioxide 38 H, Anion Gap 4.3 L, BUN 36 H, Creatinine 1.95 H, Estimated Creat Clear 41, Estimated GFR 35 L, Est GFR ( Amer) 42 L, Glucose 158 H, Calcium 8.5 03/03/18 05:28: POC Glucose 164 H I & O for Last 24 hours: Intake & Output 02/28/18 03/01/18 03/02/18 03/03/18 11:59 11:59 11:59 11:59 Intake Total 700 / 700 1357 / 1357 940 / 940 Output Total 3340 / 3340 3600 / 3600 1400 / 1400 Balance -2640 / -2640 -2243 / -2243 -460 / -460 Weight 286 lb 1 oz 290 lb 4 oz 290 lb 3.993 oz Microbiology Reports for the Last 24 Hours: Microbiology 03/01/18 01:49 Sputum - Expectorated Sputum Gram Stain - Final 03/01/18 01:49 Sputum - Expectorated Sputum Sputum Culture - Preliminary Gram Positive Cocci 02/28/18 19:06 Blood Blood Culture - Preliminary NO GROWTH AFTER 48 HOURS 02/28/18 19:06 Blood Blood Culture - Preliminary NO GROWTH AFTER 48 HOURS - *Routine Respiratory Exam Present: CTA bilaterally. Absent: accessory muscle use, rales, rhonchi, wheezes - *Routine Cardiovascular Exam Present: RRR. Absent: murmur, gallop, rubs - *Routine Extremities Exam Absent: calf tenderness - *Routine Neurological Exam Present: alert, oriented X3, moving all extremities Progress Note: A&P (1) Congestive heart failure (CHF) Status: Acute Current Visit: Yes (2) Coronary artery disease Status: Acute Current Visit: Yes (3) Xmeuq-rv-jkfkrmm kidney injury Status: Acute Current Visit: Yes (4) Microcytic anemia Status: Chronic Current Visit: Yes (5) Acute exacerbation of chronic obstructive airways disease Status: Acute Current Visit: Yes (6) Uncontrolled diabetes mellitus Status: Chronic Current Visit: Yes (7) History of coronary artery stent placement Status: Acute Current Visit: Yes (8) Morbid obesity Status: Acute Current Visit: Yes Assessment and Plan for All Diagnoses:: 1. Mild to moderate [id number] coronary artery disease by cardiac catheterization this admission. Preserved left ventricular ejection fraction. Continue metoprolol and lisinopril along with aspirin and Plavix. 2. Mild CHF likely related to diastolic dysfunction. Use lasix PRN. 3. Hyperlipidemia, on statin therapy. 4. Nothing further to add. Follow up in 2 wks as outpatient.
--- NOTE | 2018-03-03 09:51 | Discharge Summary ---
General - General Admission date:: 02/28/18 Discharge date: 03/03/18 HPI HPI: 62yo M with Hx of CHF, CAD, HTN, CKD 3, HLD, Arthritis, and morbid obesity who presents with acute onset of chest pressure and shortness of breath. Patient reports having some worsening of SOA over the past day. When he woke from a nap this afteroon ~4pm he noted significant respiratory distress. He called the clinic in [place] at that time and reported hit felt like some one was sitting on his chest. HE was encouraged to call 911 fo ran ambulance, though he insisted on driving to his brothers. En route, his Sx became worse and he stopped at the clinic in acute respiratory distress. and ambulance was called that took him to the [facility] ER. Prior to transfer he received a 325mg ASA, EKG with no overt STR changes, and placed on O2. In the ER his assessment was remarkable for Acute on CHronic respiratory failure, FRANKIE on CKD, Microcytic anemia, and CXR with increased Pulmonary vasculature and cephalization. Treated with Bipap, Mg x 2, and started on Ceftriaxone and vancomycin. Received one dose of Lasix as well. Color noted to be improved in ER compared to clinic where patient was moeller, cool and clammy. Denies N/V/D, EMANUEL, Syncope, C/o dyspnea, orthopnea, chest pressure, referred left arm pain, increased LE edema, fatigue. Hospital Course Hospital Course: Patient was admitted to acute care for further observation. He was given IV antibiotics for COPD exacerbation. Sputum culture was obtained, preliminary report show gram + cocci. Final report pending. CMP showed FRANKIE. He was gently rehydrated with some improvement in creatinine. Blood pressure was elevated and lisinopril was added. Echocardiogram showed mild abnormalities with EF 50%, no wall motion abnormalities. Cardiology was consulted who recommend continuing TREVOR-I, BB, aspirin and plavix. Shortness of breath has improved and he is able to ambulate short distances without assistance. He is tolerating oral intake well. He continues to have ongoing issues with joint pain which can be followed as an outpatient. Discharge home on oxygen. Zpack and cefdinir as sputum culture is pending. Lisinopril added. See medication reconciliation for complete list. Continue CPAP at night. FU with Dr. Aponte in our [place] office in 5 days. Repeat CMP to confirm stability. Blood pressure is slightly elevated, will re-evaluate at FU as lisinopril was just started yesterday. May consider adding low dose Lasix pending creatinine. Objective Vital signs: Temp Pulse Resp BP Pulse Ox 97.2 F L 63 18 157/93 100 03/03/18 08:00 03/03/18 08:00 03/03/18 08:00 03/03/18 08:00 03/03/18 08:00 Narrative: Alert and oriented x3. Rate and rhythm regular. No edema. Lung sounds clear, but diminished. Abdomen soft and nontender. Skin pink, warm and dry. No neuro deficits. Results Labs on day of discharge: Labs from last 24 hours 03/03/18 03/03/18 03/02/18 05:28 04:46 20:15 Sodium 138 Potassium 4.3 Chloride 100 Carbon Dioxide 38 H Anion Gap 4.3 L BUN 36 H Creatinine 1.95 H Estimated Creat Clear 41 Estimated GFR 35 L Est GFR ( Amer) 42 L Glucose 158 H POC Glucose 164 H 232 H Calcium 8.5 03/02/18 03/02/18 16:41 12:11 Sodium Potassium Chloride Carbon Dioxide Anion Gap BUN Creatinine Estimated Creat Clear Estimated GFR Est GFR ( Amer) Glucose POC Glucose 232 H 231 H Calcium Preliminary micro results at discharge 02/28/18 19:06 Blood Culture - Preliminary Blood NO GROWTH AFTER 48 HOURS 02/28/18 19:06 Blood Culture - Preliminary Blood NO GROWTH AFTER 48 HOURS DS: Diagnosis - Discharge Diagnosis (1) Congestive heart failure (CHF) Status: Chronic (2) Coronary artery disease Status: Chronic (3) [place] kidney injury Status: Acute (4) Microcytic anemia Status: Chronic (5) Acute exacerbation of chronic obstructive airways disease Status: Acute (6) Uncontrolled diabetes mellitus Status: Chronic (7) History of coronary artery stent placement Status: Acute (8) Morbid obesity Status: Acute Discharge Plan - Patient Discharge Instructions ACTIVITY: Continue current activity DIET: diabetic diet Patient Instructions: Low-Sodium Diet - Follow up Plan Follow up with: Guillaume Aponte MD [Staff Physician] - 03/07/18 Disposition: Home, Self-Group Home Medications: Home Medications Medication Instructions Recorded Confirmed Type Amlodipine Besylate [Amlodipine 10 mg PO DAILY 02/28/18 02/28/18 History 10mg Tab] Aspirin [Aspirin 325mg Tab] 325 mg PO DAILY 02/28/18 02/28/18 History Celecoxib 200 mg PO DAILY 02/28/18 02/28/18 History Clopidogrel Bisulfate [Plavix 75mg 75 mg PO DAILY 02/28/18 02/28/18 History Tab] Febuxostat [Uloric 40mg Tab] 40 mg PO DAILY 02/28/18 02/28/18 History Fluticasone Propionate [Flovent 1 puff INHALATION DAILY 02/28/18 02/28/18 History Hfa 110mcg Inhaler] Insulin Detemir [Levemir 80 units SQ BID 02/28/18 02/28/18 History 100units/mL 3mL flexpen] Losartan/Hydrochlorothiazide 1 each PO DAILY 02/28/18 02/28/18 History [Losartan-Hctz 100-25 mg Tab] Oxycodone HCl [Oxycodone (IR) 10mg 10 mg PO QID 02/28/18 02/28/18 History Tab] Pregabalin [Lyrica 150mg Cap] 150 mg PO BID 02/28/18 02/28/18 History Sucralfate [Sucralfate 1gm 1 gram PO BID 02/28/18 02/28/18 History Tab] raNITIdine HCl [Ranitidine HCl] 150 mg PO BID 02/28/18 02/28/18 History Metoprolol Succinate 100 mg PO DAILY 03/01/18 03/01/18 History Rosuvastatin Calcium 40 mg PO HS 03/01/18 03/01/18 History Ustekinumab [Stelara] 1 inj SQ DIRECTED 03/01/18 03/01/18 History Prescriptions/Medication Reconciliation: New Lisinopril [Zestril 10mg Tab] 10 mg PO BID #60 tablet Cefdinir [Omnicef 300mg Capsule] 300 mg PO BID #20 cap Azithromycin [Z-Alvarado 250mg Tab] 250 mg PO UD DOSE PK #6 tab Continue Sucralfate [Sucralfate 1gm Tab] 1 gram PO BID raNITIdine HCl [Ranitidine HCl] 150 mg PO BID Pregabalin [Lyrica 150mg Cap] 150 mg PO BID Oxycodone HCl [Oxycodone (IR) 10mg Tab] 10 mg PO QID Insulin Detemir [Levemir 100units/mL 3mL flexpen] 80 units SQ BID Fluticasone Propionate [Flovent Hfa 110mcg Inhaler] 1 puff INHALATION DAILY Febuxostat [Uloric 40mg Tab] 40 mg PO DAILY Clopidogrel Bisulfate [Plavix 75mg Tab] 75 mg PO DAILY Aspirin [Aspirin 325mg Tab] 325 mg PO DAILY Rosuvastatin Calcium 40 mg PO HS Metoprolol Succinate 100 mg PO DAILY Ustekinumab [Stelara] 1 inj SQ DIRECTED Discontinued Celecoxib 200 mg PO DAILY Amlodipine Besylate [Amlodipine 10mg Tab] 10 mg PO DAILY Losartan/Hydrochlorothiazide [Losartan-Hctz 100-25 mg Tab] 1 each PO DAILY
== END 2018-03-03 14:01 | disposition home or self-care (01) ==
LOC: ER 17:29 → 2ND 18:53 → INTOOBSV 19:35 → 2ND 19:36
PROVIDERS: ADMIT Internal Medicine Adolescent Medicine; ATTEND Internal Medicine Adolescent Medicine

== ENCOUNTER → 2018-03-17 08:34 | Outpatient (CLI) | payer MEDICARE, MEDICAID, SELFPAY ==
[2018-03-17 14:01] LABS: Albumin Level 3.2 gm/dL (3.4-5.0); Anion Gap 8.3 mEq/L (5-15); Blood Urea Nitrogen 31 mg/dL (7-18); Calcium 8.5 mg/dL (8.5-10.1); Carbon Dioxide 32 mmol/L (21.0-32.0); Chloride 103 mmol/L (98-107); Creatinine,Serum 1.89 mg/dL (0.70-1.30); Estimated Glomerular Filt Rate 36 ml/min (>60); GFR (African American) 44 ML/MIN (>60); Glucose 238 mg/dL (74-106); Potassium 4.3 mmoL/L (3.5-5.1); Sodium 139 mmol/L (136-145)
[2018-03-17 15:11] LABS: Basophils % 0.4 % (0.1-2.0); Eosinophils # 0.3 K/mm3 (0.0-0.4); Eosinophils % 5.7 % (0.1-12.0); Hematocrit 32.8 % (42.0-52.0); Hemoglobin 10.2 g/dL (14.1-18.0); Lymphocytes # 1.3 K/mm3 (0.7-4.5); Lymphocytes % 24.1 K/mm3 (10-50); Mean Corpuscular HGB Conc 31.1 g/dL (31.8-35.4); Mean Corpuscular Hemoglobin 24.1 pg (27.0-31.2); Mean Corpuscular Volume 77.6 fl (80-94); Mean Platelet Volume 7.7 fl (7.4-10.4); Monocytes # 0.2 K/mm3 (0.1-1.0); Monocytes % 4.5 % (1.7-9.3); Neutrophils # 3.4 K/mm3 (1.8-7.8); Neutrophils % 65.4 % (37.0-80.0); Platelet Count 152 K/mm3 (142-424); Red Blood Count 4.23 M/mm3 (4.60-6.20); Red Cell Distribution Width 15.3 % (11.5-17.5); White Blood Count 5.2 K/mm3 (4.8-10.8)
== END ==
PROVIDERS: PCP Internal Medicine Adolescent Medicine
DX: E11.29 Type 2 diabetes mellitus with other diabetic kidney complication (principal); I10 Essential (primary) hypertension; N17.9 Acute kidney failure, unspecified
CPT/HCPCS: 36415; 80069; 85025